=== PATIENT | male | born 1945 | race Caucasian/White ===

== ENCOUNTER → 2018-10-10 09:35 | Outpatient (CLI) | payer MEDICARE, SELFPAY ==
--- NOTE | 2018-10-10 | DI.MRI.S_ITS ---
PROCEDURE: MR KNEE RT WO CON INDICATIONS: Unilateral primary osteoarthritis, right knee TECHNIQUE: Noncontrast sagittal PD fast spin echo and T2 fast spin echo with fat saturation, sagittal 3-D FLASH with fat saturation; coronal T1 spin echo and PD fast spin echo with fat saturation, and axial PD fast spin echo with fat saturation through the knee. COMPARISON: None. FINDINGS: Image quality: Excellent. Menisci: Mild frayed appearance of the free margin of the lateral meniscus body on image 20 series 10. Medial meniscal tear involving the body and posterior horn, with near complete extrusion and a diminutive appearance of the body. Cruciate ligaments: The anterior and posterior cruciate ligaments appear intact. Medial structures: There is medial bowing of the medial collateral ligament, with mild internal signal changes and no complete rupture. There is adjacent soft tissue edema. The appearance could reflect reactive changes to medial compartment pathology, versus low-grade sprain of the MCL. Pes anserinus tendons appear grossly unremarkable. Semimembranosus tendon appears intact. Lateral structures: The lateral collateral ligament demonstrates thickening and intrasubstance signal change in keeping with sprain, although technically age indeterminate. The biceps femoris tendon appears intact. Popliteus tendon grossly unremarkable. Iliotibial band appears intact. Anterior structures: Quadriceps tendon grossly intact. Prepatellar and superficial infrapatellar subcutaneous edema/fluid. Low-grade diffuse patellar tendinosis. Medial and lateral patellofemoral ligaments appear grossly intact Bones and cartilage: No focal marrow contusion or discrete low signal fracture line. Within the medial compartment, full-thickness loss of the femoral articular cartilage with underlying marrow edema. There is diffuse partial thickness loss of the tibial cartilage Within the lateral compartment, no focal articular cartilage defect Within the patellofemoral compartment, no focal articular cartilage defect Joint space: Moderate joint effusion. Flores cyst is noted measuring approximately 5 cm in the cephalocaudad dimension and may be minimally partially ruptured. No specific evidence of intra-articular loose body. IMPRESSION: Medial meniscal tear involving the body and posterior horn with near complete extrusion. Mild fraying of the free margin of the lateral meniscal body. Degenerative joint disease, most pronounced within the medial compartment. Moderate joint effusion. Flores's cyst. Dictated by: Guido Fritz M.D. on 10/10/2018 at 11:20 Approved by: Guido Fritz M.D. on 10/10/2018 at 11:25
== END ==
PROVIDERS: Visit Provider Orthopaedic Surgery
DX: M17.11 Unilateral primary osteoarthritis, right knee (principal); S83.241A Other tear of medial meniscus, current injury, right knee, initial encounter; M25.461 Effusion, right knee; M71.21 Synovial cyst of popliteal space [Baker], right knee
CPT/HCPCS: 73721

== ENCOUNTER → 2018-11-13 09:03 | Outpatient (CLI) | payer MEDICARE, SELFPAY ==
[2018-11-13 09:26] LABS: Bacteria Urine None Seen; RBC Urine None Seen (0-5/HPF); WBC Urine None Seen (0-5/HPF)
[2018-11-13 10:21] LABS: Appearance Urine UA CLEAR; Bilirubin Urine UA NEGATIVE (NEGATIVE); Color Urine UA YELLOW; Glucose Urine UA NEGATIVE (Negative); Ketones Urine UA NEGATIVE (NEGATIVE); Leukocyte Esterase Urine UA NEGATIVE (NEGATIVE); Nitrite Urine UA NEGATIVE (Negative); Occult Blood Urine UA NEGATIVE (Negative); Protein Urine UA NEGATIVE (Negative); Specific Gravity Urine UA <=1.005 (1.000-1.035); Urobilinogen Urine UA 0.2 E.U./dL (0.2)
[2018-11-13 10:24] LABS: Culture Indicated Urine Cult Not Indicated; Urine Comments Microscopic Normal
[2018-11-13 10:25] LABS: Add Manual Diff / Slide Review NO; Basophils Absolute Auto 0 /uL (0-100); Basophils Percent Auto 0.5 % (0-2); Eosinophils Absolute Auto 0 /uL (0-450); Eosinophils Percent Auto 0.4 % (2-4); Hematocrit 49.8 % (41-53); Hemoglobin 17.2 g/dL (13.5-17.5); Lymphocytes Absolute Auto 2100 /uL (1100-4500); Lymphocytes Percent Auto 38.4 % (25-40); Mean Corpuscular HGB Conc 34.6 % (30-36); Mean Corpuscular Hemoglobin 31.3 PG (26-34); Mean Corpuscular Volume 90.6 fL (80-100); Monocytes Absolute Auto 500 /uL (0-900); Monocytes Percent Auto 8.9 % (3-14); Neutrophils Absolute Auto 2800 /uL (1500-7000); Neutrophils Percent Auto 51.8 % (50-75); Platelet Count 213 X10^3/uL (150-400); Red Cell Distribution Width 13.6 % (11.6-14.8); White Blood Cell Count 5.4 X10^3/uL (4.5-11.0)
[2018-11-13 10:51] LABS: Blood Urea Nitrogen 17 mg/dL (9-20); Carbon Dioxide 26 mmol/L (22-32); Chloride 98 mmol/L (98-107); Estimated Glomerular Filt Rate > 60.0 mL/min (>60); Glucose 120 mg/dL (80-110); HEMOLYSIS < 15 (0-50); Potassium 4.5 mmol/L (3.4-5.1); Sodium 137 mmol/L (137-145); Transferrin 293 mg/dL (206-381)
== END ==
PROVIDERS: Visit Provider Orthopaedic Surgery
DX: Z01.818 Encounter for other preprocedural examination (principal); E61.1 Iron deficiency; N39.0 Urinary tract infection, site not specified; R73.9 Hyperglycemia, unspecified
CPT/HCPCS: 36415; 80048; 81001; 83036; 84466; 85025; 93005

== ENCOUNTER → 2019-11-07 14:32 | Outpatient (CLI) | payer MEDICARE, SELFPAY ==
--- NOTE | 2019-11-07 | DI.MRI.S_ITS ---
PROCEDURE: MR LUMBAR SPINE WO CON INDICATIONS: Spondylosis without myelopathy or radiculopathy, lumbar maame TECHNIQUE: Noncontrast sagittal T1 spin echo and T2 fast echo, sagittal STIR, axial T1 and T2 fast spin echo through the lumbar spine. In cases with scoliosis, additional coronal T2 fast spin echo may be performed. COMPARISON: None. FINDINGS: Image quality: Excellent. Alignment and Curvature: There is normal bony alignment. Bone Marrow: Marrow is of normal overall signal. No acute vertebral body compression fractures. Spinal Cord: Conus medullaris terminates at the T12-L1 level. Visualized cord demonstrates normal signal and size. Paraspinous Soft Tissues: No paravertebral masses. L1-L2: Normal appearance. L2-L3: Mild canal narrowing. Partial effacement of both lateral recesses with bilaterally symmetric appearance. Moderate left foraminal stenosis. Mild to moderate right foraminal stenosis. L3-L4: Mild canal narrowing. Posterior annular fissure. Partial effacement of both lateral recesses with bilaterally symmetric appearance. Moderate bilateral foraminal stenosis with slight nerve root compression bilaterally. L4-L5: Mild canal narrowing. Posterior annular fissure. Partial effacement of both lateral recesses with bilaterally symmetric appearance. Moderate right foraminal stenosis. Mild to moderate left foraminal stenosis with slight nerve root compression. L5-S1: No canal narrowing. Partial effacement of both lateral recesses with bilaterally symmetric appearance. Mild left foraminal stenosis. Moderate right foraminal stenosis . IMPRESSION: Multilevel lumbar spondylosis and facet arthropathy. No high-grade canal stenosis Diffuse, bilateral foraminal stenosis as detailed above, most notably at L3-L4. Dictated by: Guido Fritz M.D. on 11/09/2019 at 10:54 Approved by: Guido Fritz M.D. on 11/09/2019 at 11:02
== END ==
PROVIDERS: PCP Internal Medicine; Referring Provider Physical Medicine & Rehabilitation; Visit Provider Physical Medicine & Rehabilitation
DX: M47.816 Spondylosis without myelopathy or radiculopathy, lumbar region (principal); M48.061 Spinal stenosis, lumbar region without neurogenic claudication
CPT/HCPCS: 72148